=== PATIENT | female | born 1995 | race Caucasian/White ===

== ENCOUNTER 2021-12-13 19:38 | Emergency (ER) | payer MEDICAID, SELFPAY ==
[2021-12-13 19:42] VITALS: BP 111/74; PULSE 80; RESP 14; O2SAT 100
[2021-12-13 19:55] VITALS: PULSE 71
[2021-12-13 20:19] LABS: Glucose Point of Care 80 mg/dl (65-105)
--- NOTE | 2021-12-13 20:19 | ECG_ITS ---
Measurements Intervals [place] Rate: 65 P: 6 TX: 149 QRS: 45 QRSD: 101 T: 21 QT: 389 QTc: 406 Interpretive Statements SINUS RHYTHM WITH SINUS ARRHYTHMIA INCOMPLETE RIGHT BUNDLE BRANCH BLOCK BORDERLINE ECG Electronically Signed On 12-13-2021 20:30:00 CDT by Holden Marquez D.O.
--- NOTE | 2021-12-13 20:20 | ED.SYNCOPE ---
HPI - Syncope General Chief Complaint: Syncope Stated Complaint: syncopal with possible seizure Time Seen by Provider: 12/13/21 19:58 History of Present Illness HPI narrative: Patient states she was at the store today, started feeling clammy, slightly nauseous, feeling there was ringing in your ears and vision was going guerra, she initially tried to grab the BERNARD machine to stabilize herself but then she lost consciousness, and hit the floor. She did immediately return to baseline, she endorses mild headache to the back of the head where she hit the floor, mild neck pain, denies any other symptoms, denies any chest pain or difficulty breathing. Believes the entire episode lasted less than a minute per bystanders, she has had 3 such episodes in the past 6 months, and is being worked up by cardiology for this. Denies any triggers. Injuries sustained associated with event: neck and head Current symptoms: back to baseline and headache History: previous syncopal episode Treatments prior to arrival: none Review of Systems Review of Systems: All systems reviewed & are unremarkable except as noted in HPI and below PMFSH Past Medical History Medical History Syncope Exam Narrative: EXAMINATION OF ORGAN SYSTEMS/BODY AREAS: Constitutional: Vital signs per nursing GENERAL:[No acute distress, non-toxic appearing.] HEAD: Mild TTP R back of head NECK: No midline tenderness, some paraspinal pain, no pain with ROM EYES: EOMI, conjunctiva normal ENT: Hearing grossly intact LUNGS: Nonlabored breathing. HEART: [Regular rate and rhythm] ABD: Gravid EXT: Normal range of motion SKIN: [No rashes or lesions.] NEURO: [Alert and oriented x 3. No gross focal sensory or strength deficits.] PSYCH: Normal affect Course Course Emergency Course: 26-year-old female presenting with syncopal episode, she has had multiple events in the past with prodrome, vital signs stable here, exam here shows mild tenderness palpation to the head and paraspinal neck, however no midline tenderness, no indication for CT head or C-spine per [place] rules, blood sugar checked here and is within acceptable limits, EKG unremarkable. Suspect vasovagal syncope given her prodrome, doubt cardiac etiology without chest pain and normal EKG, doubt seizure without post-ictal symptoms. 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 Can return for further issues. Vital Signs Vital signs: Vital Signs Pulse Rate 80 12/13/21 19:42 Respiratory Rate 14 12/13/21 19:42 Blood Pressure 111/74 12/13/21 19:42 Pulse Oximetry 100 12/13/21 19:42 Pulse Rate 71 12/13/21 19:55 Respiratory Rate 14 12/13/21 19:42 Blood Pressure 111/74 12/13/21 19:42 Pulse Oximetry 100 12/13/21 19:42 MDM - Syncope Lab Data Labs: Lab Results 12/13/21 Range/Units 20:15 POC Capillary Glucose 80 (65-105) mg/dl
[2021-12-13] MEDS: Please add drug allergy info to patient profile. 1 EACH XX (20:38)
[2021-12-13] MEDS: ACETAMINOPHEN 325 MG TABLET 650 MG PO (21:03)
[2021-12-13 21:39] VITALS: BP 110/64; PULSE 84; RESP 16; O2SAT 100
== END 2021-12-13 21:44 | disposition home or self-care (01) ==
PROVIDERS: Emergency Provider Emergency Medicine
DX: R55 Syncope and collapse (principal); W18.39XA Other fall on same level, initial encounter
CPT/HCPCS: 82948; 93005; 99283; A9270